=== PATIENT | female | born 1980 | race Caucasian/White ===

== ENCOUNTER 2018-07-21 23:32 | Day surgery (SDC) | payer BC ==
[~2018-07-21] VITALS: Ht 165.1 cm; Wt 105.1 kg
[2018-07-22] VITALS (11 sets, daily range): BP systolic 99–113; BP diastolic 54–65; PULSE 70–90; TEMP 97.8–98.5
[2018-07-22] MEDS ORDERED: NORCO 325 MG-51 TAB PO (16:22)
== END 2018-07-22 19:40 | disposition home or self-care (01) ==
LOC: SURG 23:32 → SDCO 23:32 → SURG 23:35 → SDCO 07-22 19:40
DX: K35.80 Unspecified acute appendicitis (principal)
CPT/HCPCS: OP; J0171; J0690; J1100; J1170; J1885; J2270; J2405; J2543; J2550; J2704; J3010; J7120

== ENCOUNTER 2018-12-30 23:12 | Emergency (ER) | payer BC ==
[~2018-12-30] VITALS: Ht 165.1 cm; Wt 102.3 kg
[~2018-12-30 23:12] MED LIST: NORCO 325 MG-51 TAB PO
[2018-12-30 23:24] VITALS: TEMP 98.6
[2018-12-30] MEDS ORDERED: ZYRTEC5 MG PO (23:46)
[2018-12-31] MEDS ORDERED: NORCO 325 MG-51 TAB PO (01:12)
[2018-12-31] MEDS ORDERED: ZOFRAN ODT4 MG PO (01:12)
[2018-12-31 01:30] VITALS: BP 116/82; PULSE 87
== END 2018-12-31 01:30 | disposition home or self-care (01) ==
LOC: COL.ER 23:12
DX: S43.084A Other dislocation of right shoulder joint, initial encounter (principal); Z90.49 Acquired absence of other specified parts of digestive tract; W18.30XA Fall on same level, unspecified, initial encounter; Y92.009 Unspecified place in unspecified non-institutional (private) residence as the place of occurrence of the external cause
CPT/HCPCS: J2405; J3010

== ENCOUNTER → 2022-01-26 | Outpatient (CLI) | payer BC ==
[~2022-01-26] MED LIST changes: +ZOFRAN ODT4 MG PO; +ZYRTEC5 MG PO
== END ==
LOC: MC.RAD 07:51
DX: Z12.31 Encounter for screening mammogram for malignant neoplasm of breast (principal)

== ENCOUNTER 2023-10-25 10:12 | Day surgery (SDC) | payer BC ==
[~2023-10-25] VITALS: Ht 162.6 cm; Wt 96.8 kg
[2023-10-25] VITALS (11 sets, daily range): BP systolic 97–136; BP diastolic 58–92; PULSE 59–87; TEMP 97.2–99.1
[2023-10-25] MEDS ORDERED: Scopolamine 1 MG Delivered 3-Day PATCH TD SCH (11:00)
[2023-10-25] MEDS ORDERED: diazePAM 10 MG TAB PO SCH (11:00)
[2023-10-25] MEDS ORDERED: Famotidine 20 MG TAB PO SCH (11:00)
[2023-10-25] MEDS ORDERED: LR 1,000 ML IV SCH ×2 (11:00→14:45)
[2023-10-25] MEDS ORDERED: PROTONIX 40MG T40 MG PO (11:26)
[2023-10-25] MEDS ORDERED: LEXAPRO20 MG PO (11:27)
[2023-10-25] MEDS ORDERED: INDERAL 20MG20 MG PO (11:27)
[2023-10-25] MEDS ORDERED: WELLBUTRIN XL300 M1 PO (11:27)
[2023-10-25] MEDS ORDERED: SEROQUEL 2525 MG/TAB PO (11:28)
[2023-10-25] MEDS ORDERED: PEPCID 20MG TAB20 MG PO (11:28)
--- NOTE | 2023-10-25 11:28 | NUR ---
1037-PATIENT ARRIVED TO [facility], ALERT AND ORIENTED ON ARRIVAL, ACCOMPANIED BY SPOUSE. CONSENTS REVIEWED AND SIGNED, PLAN OF CARE DISCUSSED AND QUESTIONS INVITED. PT HISTORY, MEDICATIONS, ALLERGIES REVIEWED. PT CHANGED INTO GOWN INDEPENDENTLY, BELONGINGS LABELED. SPOUSE KEEPING PATIENT'S OVERNIGHT BAG. VITAL SIGNS TAKEN, VSS. LAB CALLED TO BEDSIDE FOR LAB DRAW. 20 G IV STARTED TO RFA, X2 ATTEMPTS. FLUIDS STARTED AND PRE-OP MEDS GIVEN, PHYSICAL ASSESSMENT UNREMARKABLE. CALL LIGHT WITHIN REACH, BED REMAINS IN LOWEST POSITION. WARM BLANKET PROVIDED. SPOUSE REMAINS AT BEDSIDE. PT AWAITING PROCEDURE.
[2023-10-25] MEDS ORDERED: Rocuronium 50 MG/5 ML Multi-Dose VIAL ONE ×2 (12:07→12:08)
[2023-10-25] MEDS ORDERED: Lidocaine PF 2% (20 MG/ML) 5 ML VIAL ONE (12:07)
[2023-10-25] MEDS ORDERED: fentaNYL 50 MCG/ML 5 ML VIAL ONE (12:07)
[2023-10-25] MEDS ORDERED: ePHEDrine 50 MG/ML VIAL ONE (12:29)
[2023-10-25] MEDS ORDERED: Lidocaine 2% (20 MG/ML) 20 ML UROJET UR ONE ×2 (12:31)
[2023-10-25] MEDS ORDERED: Topical Skin Adhesive 1 EACH (1 ML) TOP ONE (12:31)
[2023-10-25] MEDS ORDERED: dexAMETHasone 10 MG/ML VIAL ONE (12:37)
[2023-10-25] MEDS ORDERED: fentaNYL 50 MCG/ML 2 ML VIAL ONE (13:23)
[2023-10-25] MEDS ORDERED: HYDROmorphone 2 MG/1 ML VIAL ONE (13:34)
[2023-10-25] MEDS ORDERED: Ondansetron 4 MG/2 ML VIAL ONE (13:35)
[2023-10-25] MEDS ORDERED: HYDROmorphone 2 MG/1 ML VIAL IV PRN (14:15)
[2023-10-25] MEDS ORDERED: Ondansetron 4 MG/2 ML VIAL IV PRN ×2 (14:15→14:45)
[2023-10-25] MEDS ORDERED: fentaNYL 50 MCG/ML 2 ML VIAL IV PRN (14:15)
[2023-10-25] MEDS ORDERED: oxyCODONE 5 MG TAB PO PRN (14:45)
[2023-10-25] MEDS ORDERED: Naloxone 0.4 MG/ML VIAL IV PRN (14:45)
[2023-10-25] MEDS ORDERED: Acetaminophen 500 MG TAB PO PRN (14:45)
[2023-10-25] MEDS ORDERED: Albuterol 0.042% Neb Soln 1.25 MG/3 ML UD IH PRN (15:00)
[2023-10-25] MEDS ORDERED: Denosumab 60 MG/ML SYRINGE SQ ONE (15:00)
--- NOTE | 2023-10-25 15:30 | NUR ---
PT UP TO FLOOR AT THIS TIME. A/O X4, VITALS STABLE, TOLERATING CLEAR LIQUIDS, RAMIREZ TO DEPENDENT DRAINAGE, PAIN 4/10, PAIN MEDICAITON PROVIDED PER EMAR, 2L NC PER ORDERS. WILL CONTINUE TO MONITOR AND ADVANCE DIET.
[2023-10-25] MEDS ORDERED: Ibuprofen 800 MG TAB PO SCH (20:42)
[2023-10-25] MEDS ORDERED: Docusate Sodium 100 MG CAP PO SCH (21:00)
[2023-10-26 03:58] VITALS: BP 106/69; PULSE 78; TEMP 98.3
[2023-10-26 05:00] VITALS: BP_SYST 95
[2023-10-26 07:48] VITALS: BP 95/59; PULSE 74; TEMP 98.2
--- NOTE | 2023-10-26 08:13 | NUR ---
NURSING SHIFT ASSESSMENT COMPLETED. THE PATIENT WAS ALERT AND ORIENTED. THE PATIENT REPORTED 7/10 ABD PAIN AND GAS PAINS. PRN PAIN MEDICATIONS PROVIDED. THE PLAN OF CARE AND EVENING MEDICATIONS REVEIWED. ACTIVITY AND AMBULATION ENCOURAGED. THE PATIENT VERBALIZED UNDERSTANDING. BED IN LOW POSITION, CALL LIGHT WITHIN REACH.
[2023-10-26 08:17] VITALS: BP_SYST 95
--- NOTE | 2023-10-26 09:17 | NUR ---
PT RESTING IN BED WITH PAIN 4/10 IN ABDOMEN. LAP SITES WITH EDGES WELL APPROX. STEADY GAIT TO BATHROOM. RAMIREZ REMOVED. EDUCATED PT ON WALKING FREQUENTLY AND INCREASING PO INTAKE. PT NOTES MILD NAUSEA, MEDICATION PROVIDED PER EMAR. WILL CONTINUE TO MONITOR.
--- NOTE | 2023-10-26 10:40 | NUR ---
Initial visit; Patient and her thanked Heel Nailing Machine Operator for looking in on her and wishing her well. Vernell is ready to be discharged today and says she is doing well. Heel Nailing Machine Operator visited briefly with the two of them and offered God's blessings.
--- NOTE | 2023-10-26 11:04 | NUR ---
DISCHARGE INSTRUCTIONS PROVIDED PT AND FAMILY. DISCUSSED FOLLOW UP APPOINTMENTS, NEW MEDICAITONS, AND SIGNS OF INFECTION. NO QUESTIONS AT THIS TIME. IV REMOVED. PT ESCORTED OUT OF BUILDING AT THIS TIME.
== END 2023-10-26 11:00 | disposition home or self-care (01) ==
LOC: SDCO 10:12 → SURG 15:30 → SDCO 10-26 11:00
DX: N92.0 Excessive and frequent menstruation with regular cycle (principal); N94.6 Dysmenorrhea, unspecified; N80.9 Endometriosis, unspecified; N73.6 Female pelvic peritoneal adhesions (postinfective); N83.201 Unspecified ovarian cyst, right side; N83.11 Corpus luteum cyst of right ovary; N72 Inflammatory disease of cervix uteri; N80.102 Endometriosis of left ovary, unspecified depth; N83.12 Corpus luteum cyst of left ovary; N80.202 Endometriosis of left fallopian tube, unspecified depth
CPT/HCPCS: OP; A4314; J0690; J1100; J1170; J2405; J2704; J3010; J7120